=== PATIENT | male | born 1960 | race Caucasian/White ===

== ENCOUNTER 2024-10-03 06:15 | Inpatient (IN) | payer MEDICAID, OTHER ==
[~2024-10-03] VITALS: Ht 180.3 cm; Wt 104.1 kg
[~2024-10-03 06:15] MED LIST: ALBU18HF2 IH; ASPI-1497 PO; COR6 PO; GABA-1180 PO; HYDR25TA PO; LOSA100T33 PO; SIMV-43 PO; SUMA25TA9 PO
[2024-10-03 06:53] LABS: BASOPHILS % 0.6 % (0.0-2.0); EOSINOPHILS % 4.6 % (0.0-5.0); HEMATOCRIT. 42.2 % (42.0-52.0); HEMOGLOBIN. 13.9 g/dL (14.0-18.0); LYMPHOCYTES % 23.6 % (20.0-50.0); MEAN CORPUSCULAR HEMOGLOBIN 28.6 pg (28.0-32.0); MEAN CORPUSCULAR VOLUME 86.8 fL (80.0-94.0); MEAN PLATELET VOLUME 7.3 fl (7.4-10.4); MONOCYTES % 9.8 % (2.0-8.0); NEUTROPHILS % 61.4 % (40.0-76.0); PLATELET 317 x1000/uL (130-400); RED BLOOD CELL COUNT 4.87 mill/uL (4.7-6.1); RED CELL DISTRIBUTION WIDTH 15.1 % (11.6-14.6); WHITE BLOOD COUNT 9.7 x1000/uL (4.5-11.0)
[2024-10-03 06:59] LABS: CHLORIDE 105 mEq/L (98-107); SODIUM 140 mEq/L (136-145)
[2024-10-03 07:00] LABS: CALCIUM 9.1 mg/dL (8.7-10.4); CARBON DIOXIDE 27 mEq/L (21-32)
[2024-10-03 07:05] LABS: CREATININE 1.1 mg/dL (0.6-1.3); GLUCOSE 88 mg/dL (70-105); UREA NITROGEN BLOOD 11 mg/dL (9-23)
[2024-10-03] MEDS ORDERED: METHYLPREDNISOLONE SOD SUCC 125MG/2ML (ACT-O-VIAL) ONE (07:48)
[2024-10-03] MEDS ORDERED: IODIXANOL 320MG/ML 100 ML BOTTLE IV ONE (07:48)
[2024-10-03] MEDS ORDERED: DIPHENHYDRAMINE 50MG/ML VIAL ONE (07:48)
[2024-10-03] MEDS ORDERED: LIDOCAINE HCL 1% 20ML VIAL ONE (07:49)
[2024-10-03] MEDS ORDERED: HEPARIN 1000 UNITS/ML 10ML ONE (07:56)
[2024-10-03] MEDS: SODIUM CHLORIDE 0.45% 500 ML IV ONE (07:58)
[2024-10-03] MEDS ORDERED: MIDAZOLAM HCL 2 MG/2 ML VIAL ONE (08:24)
[2024-10-03] MEDS ORDERED: FENTANYL CITRATE/PF 50MCG/ML 2ML VIAL ONE (08:24)
[2024-10-03] MEDS ORDERED: CLOPIDOGREL 75MG TABLET ONE ×2 (10:55→11:14)
[2024-10-03] MEDS ORDERED: ATROPINE SULFATE 1MG/10ML SYR IV PRN (11:15)
[2024-10-03] MEDS ORDERED: ONDANSETRON HCL 4MG/2ML INJ IV PRN ×2 (11:15→12:30)
[2024-10-03] MEDS ORDERED: ACETAMINOPHEN 325MG TABLET PO PRN ×3 (11:15→12:30)
[2024-10-03] MEDS ORDERED: MORPHINE SULFATE 2 MG/ML INJ (NOT FOR IM USE) IV PRN ×2 (11:15→12:30)
[2024-10-03 11:44] VITALS: BP 150/79; PULSE 88; RESP 19; TEMP 36.6; O2SAT 96
[2024-10-03] MEDS ORDERED: GUAIFENESIN 200MG/10ML SUGAR FREE UDC PO PRN (12:30)
[2024-10-03] MEDS ORDERED: MAGNESIUM/ALUMINUM HYDROXIDE/SIMETHICONE 30ML UDC PO PRN (12:30)
[2024-10-03] MEDS ORDERED: IPRATROPIUM/ALBUTEROL 0.5-3(2.5)MG/3ML NEB HHN PRN (12:30)
[2024-10-03] MEDS ORDERED: HYDROCODONE/ACETAMINOPHEN 5/325MG TABLET PO PRN (12:30)
[2024-10-03] MEDS ORDERED: CLONIDINE 0.1MG TABLET PO PRN (12:30)
[2024-10-03] MEDS ORDERED: ENOXAPARIN 40MG/0.4ML SYR SUBCUT SCH (12:30)
[2024-10-03] MEDS ORDERED: DOCUSATE SODIUM 100MG CAPSULE PO PRN (12:30)
[2024-10-03] MEDS ORDERED: NALOXONE HCL 0.4MG/ML VIAL IV PRN (12:45)
[2024-10-03 13:32] VITALS: BP 108/70; PULSE 84; RESP 15; TEMP 36.7
[2024-10-03 16:00] VITALS: BP 151/85; PULSE 93; RESP 24; TEMP 36.7
[2024-10-03 16:26] LABS: CREATINE KINASE 46 IU/L (46-171)
[2024-10-03 16:27] LABS: CREATINE KINASE MB FRACTION < 0.5 ng/mL (0.5-3.6)
[2024-10-03 16:30] LABS: TROPONIN I HIGH SENSITIVITY < 4 ng/L (3.0-53)
[2024-10-03 16:42] LABS: HEPATITIS B SURFACE ANTIGEN NEGATIVE (Negative)
[2024-10-03 17:03] LABS: HEPATITIS C AB NON REACTIVE (Neg) (Negative)
[2024-10-03] MEDS: ENOXAPARIN 30MG/0.3ML SYR SUBCUT SCH (18:05)
[2024-10-03 19:09] LABS: CLARITY URINE CLEAR (CLEAR); COLOR URINE YELLOW (YELLOW); GLUCOSE URINE NEGATIVE (NEGATIVE); KETONES URINE 2+ (NEGATIVE); LEUKOCYTE ESTERASE URINE NEGATIVE (NEGATIVE); NITRITE URINE NEGATIVE (NEGATIVE); OCCULT BLOOD URINE NEGATIVE (NEGATIVE); PH URINE 6.5 (4.5-8.0); PROTEIN URINE NEGATIVE (NEGATIVE)
[2024-10-03 20:00] VITALS: BP 131/71; PULSE 91; RESP 16; TEMP 36.6; O2SAT 95
[2024-10-03] MEDS: CARVEDILOL 6.25 MG TABLET PO SCH (21:54)
[2024-10-03] MEDS: ATORVASTATIN CALCIUM 40MG TABLET PO SCH (21:56)
[2024-10-04] VITALS: BP 120/69; PULSE 86; RESP 22; TEMP 36.7; O2SAT 92
[2024-10-04 01:01] LABS: CREATINE KINASE 45 IU/L (46-171); CREATINE KINASE MB FRACTION < 0.5 ng/mL (0.5-3.6)
[2024-10-04 01:06] LABS: TROPONIN I HIGH SENSITIVITY < 4 ng/L (3.0-53)
[2024-10-04] MEDS ORDERED: ASPIRIN 81MG EC TABLET PO SCH (09:00)
[2024-10-04] MEDS ORDERED: LOSARTAN 100 MG TABLET PO SCH (09:00)
[2024-10-04] MEDS ORDERED: GABAPENTIN 300MG CAPSULE PO SCH (09:00)
[2024-10-04] MEDS ORDERED: NICOTINE 14MG PATCH TD SCH (09:00)
[2024-10-04] MEDS ORDERED: HYDROCHLOROTHIAZIDE 25MG TABLET PO SCH (09:00)
[2024-10-04] MEDS ORDERED: SUMATRIPTAN SUCCINATE 25MG TABLET PO SCH (09:00)
[2024-10-04] MEDS ORDERED: CLOPIDOGREL 75MG TABLET PO SCH (09:00)
== END 2024-10-04 04:00 | disposition left against medical advice (07) | DRG 182 ==
LOC: CCL 06:15 → 3WST 11:40
PROVIDERS: ADMIT Internal Medicine Cardiovascular Disease; ATTEND Internal Medicine Cardiovascular Disease
PROC: 047L3DZ Dilation of Left Femoral Artery with Intraluminal Device, Percutaneous Approach (ICD-10-PCS; principal; 2024-10-03)
PROC: B41G1ZZ Fluoroscopy of Left Lower Extremity Arteries using Low Osmolar Contrast (ICD-10-PCS; 2024-10-03)
DX: I70.222 Atherosclerosis of native arteries of extremities with rest pain, left leg (principal); E78.5 Hyperlipidemia, unspecified; F17.200 Nicotine dependence, unspecified, uncomplicated; I10 Essential (primary) hypertension; Z53.29 Procedure and treatment not carried out because of patient's decision for other reasons; Z85.828 Personal history of other malignant neoplasm of skin; Z79.02 Long term (current) use of antithrombotics/antiplatelets; Z79.82 Long term (current) use of aspirin; Z79.899 Other long term (current) drug therapy; Z88.0 Allergy status to penicillin
CPT/HCPCS: 36415; 37226; 75710; 80048; 81003; 82550; 82553; 84484; 85025; 85347; 86705; 87340; 93005; A4606; C1769; C1876; C1887; C1893; C1894; J1200; J1644; J1650; J2250; J2919; J3010; J3490; Q9967